=== PATIENT | male | born 1980 | race Caucasian/White ===

== ENCOUNTER → 2017-02-27 | Outpatient (CLI) | payer BC ==
[2017-02-27 14:00] LABS: ALBUMIN 4.2 GM/DL (3.2-5.2); ALBUMIN/GLOBULIN RATIO 1.05 (1.00-1.93); ALKALINE PHOSPHATASE 103 U/L (45-117); ALT/SGPT 32 U/L (12-78); ANION GAP 7 MEQ/L (8-16); AST/SGOT 14 U/L (15-37); BILIRUBIN,TOTAL 0.5 MG/DL (0.2-1.0); BLOOD UREA NITROGEN 15 MG/DL (7-18); CALCIUM LEVEL 9.5 MG/DL (8.5-10.1); CARBON DIOXIDE LEVEL 27 MEQ/L (21-32); CHLORIDE LEVEL 103 MEQ/L (98-107); GLOMERULAR FILTRATION RATE > 60.0 (>60); GLUCOSE, FASTING 91 MG/DL (70-105); POTASSIUM SERUM 4.7 MEQ/L (3.5-5.1); SODIUM LEVEL 137 MEQ/L (136-145); TOTAL PROTEIN 8.2 GM/DL (6.4-8.2)
[2017-02-27 14:50] LABS: BASO # 0.1 K/mm3 (0.0-0.2); BASO % 0.9 % (0.0-1.0); EOS # 0.2 K/mm3 (0.0-0.50); LYMPH # 1.7 K/mm3 (1.5-4.5); LYMPH % 24.6 % (24.0-44.0); MEAN CORPUSCULAR HEMOGLOBIN 31.1 pg (27.0-33.0); MEAN CORPUSCULAR HGB CONC 33.2 g/dl (32.0-36.5); MEAN CORPUSCULAR VOLUME 93.7 fl (80.0-96.0); MONO # 0.5 K/mm3 (0.0-0.8); MONO % 7.7 % (0.0-5.0); NEUTROPHILS # 4.1 K/mm3 (1.8-7.7); NEUTROPHILS % 62.5 % (36.0-66.0); RED CELL DISTRIBUTION WIDTH 12.4 % (11.5-14.5); WHITE BLOOD COUNT 6.6 K/mm3 (4.0-10.0)
== END ==
LOC: M WUC 09:38
PROVIDERS: ATTEND Physician Assistant Medical
DX: R10.84 Generalized abdominal pain (principal)

== ENCOUNTER → 2017-03-07 | Outpatient (CLI) | payer BC ==
[~2017-03-07] MED LIST: GASTROGRAFIN SOLUTION 30ML (Q9963) As Ordered ONE; ISOVUE-370 76% 100ML VIAL (Q9967) As Ordered ONE
--- NOTE | 2017-03-07 17:43 | REP ---
CT ABDOMEN AND PELVIS WITHOUT AND WITH CONTRAST: 03/07/2017. Clinical history: Left mid abdominal pain, hematuria. No prior study. Technique: Oral Gastrografin mixture 10 ml in 290 ml of flavored water for two doses per our bowel contrast protocol. Scanning through the abdomen followed by bolus of 100 ml of Isovue 370, scanning through the abdomen and pelvis with coronal and sagittal reconstructions provided. Findings: CT abdomen: Lung bases show some minor curvilinear fibroatelectatic change in the inferior lingula and medial segment right middle lobe. There is no pleural effusion or acute infiltrate. There is some minor curvilinear or linear atelectatic change lateral basal segment of the left lower lobe. Heart is not enlarged. There is no pericardial thickening or effusion. There is no definite hiatal hernia. The liver, spleen, gallbladder, pancreas, adrenal glands and stomach were grossly unremarkable. Small bowel loops and colon in the abdomen proper showed no acute finding. The aorta is without aneurysm. There is no periaortic or other retroperitoneal pathologic sized lymphadenopathy. The bone windows, lumbar and lower thoracic spine, the posterior elements and visualized ribs all grossly intact. There is a horseshoe kidney configuration. Neither kidney shows hydronephrosis. In the interpolar lower pole region of the right portion of the horseshoe kidney is a 7 mm stone. At the inferior pole is a 6.7 mm stone and neither of these are causing hydronephrosis on that right side, on the left side in an extrarenal pelvis measuring 8.9 mm. Ureters show a normal course to the bladder without stone. The bladder is partially empty with no stone, wall thickening or mass. Small bowel loops and colon have oral contrast, which extends to the hepatic flexure. No dilated loops, wall thickening or edema in the mesentery. No colitis, diverticulitis, stricture or mass in the colon, which has a mild to moderate amount of retained stool in the abdomen. Fused portion of the horseshoe kidney is unremarkable and neither side shows any definite hydronephrosis. CT pelvis: The bone windows show sacrum, SI joints, lumbosacral junction, pelvis, hips and symphysis pubis grossly unremarkable. Distal ureters show no dilatation or stone. There are multiple pelvic phleboliths bilaterally. Bladder only partially filled. Distal left colon, sigmoid and rectum without colitis or diverticulitis. Pelvic phleboliths are noted bilaterally. Small bowel loops in the deep pelvis were contrast filled and unremarkable. Ileocecal valve intact. No ventral or inguinal hernia nor inguinal adenopathy. There is no inflammatory change about the cecum to suggest appendicitis. Impression: 1. There is a horseshoe kidney with bilateral renal stones with a slightly prominent extrarenal pelvis for the left moiety of this horseshoe kidney and the stone measures 8.9 mm. There is a 7 mm stone and another 6.7 mm stone in the interpolar lower pole region of the right renal moiety of that horseshoe kidney, however, no definite hydronephrosis or hydroureter. Bladder without stone or mass. 2. Solid organs in the upper abdomen are otherwise unremarkable. Gallbladder and stomach were intact. Colon and small bowel loops without acute finding. No appendicitis. No ascites, adenopathy or free air. Signed by Ramakrishna Posey MD 03/08/2017 02:56 P
== END ==
LOC: M RAD 14:35
PROVIDERS: ATTEND Physician Assistant Medical
DX: R10.9 Unspecified abdominal pain (principal); R31.9 Hematuria, unspecified

== ENCOUNTER → 2017-03-20 | Outpatient (CLI) | payer BC ==
--- NOTE | 2017-03-21 04:41 | REP ---
Clinical: Chronic cough and shortness of breath with high risk factors. Graham: None. Findings: Lung boland demonstrate chronic-appearing fiber atelectatic changes predominate involving the right middle lobe, bilateral lower lobes and apices along with diffuse chronic interstitial changes and bronchiectasis. Small nodular focus along the lateral aspect of the right middle lobe measures approximately 7 mm and while this likely represents an area of chronic fibrosis/scarring, active pathology cannot be excluded. No consolidation, further nodule/mass. No pleural effusion/reaction or pneumothorax. Mild adenopathy cannot be excluded due to the lack of contrast enhancement. Thoracic aorta, heart and pericardium appear relatively normal. Surrounding musculoskeletal structures are intact. Limited upper abdomen demonstrates normal bilateral adrenal glands. Impression: 1. Moderate diffuse chronic appearing changes including fibro atelectatic changes, bronchiectasis, and scattered scarring with very vague early ground-glass opacities. 2. Small 7 mm focus along the lateral right middle lobe likely represents scarring although active pathology cannot be excluded and 3 - 6 month follow-up contrast enhanced chest CT may be warranted. Signed by Oscar Arvizu MD 03/21/2017 04:32 A
== END ==
LOC: M RAD 13:04
PROVIDERS: ATTEND Physician Assistant Medical
DX: R91.8 Other nonspecific abnormal finding of lung field (principal); F17.210 Nicotine dependence, cigarettes, uncomplicated; R06.02 Shortness of breath; R05 Cough

== ENCOUNTER → 2017-03-29 | Outpatient (CLI) | payer BC ==
--- NOTE | 2017-03-29 15:28 | REP ---
KUB ONE VIEW: HISTORY: Kidney stones. COMPARISON: CT 03/07/2017 A 9 mm calcification is present overlying the right kidney. An 11 mm calcification is present overlying the left kidney. These correspond to the renal calcifications seen in the recent CT examination. The intestinal gas pattern is nonspecific. IMPRESSION: Bilateral nephrolithiasis. Signed by Chuy Smith MD 03/29/2017 03:29 P
[2017-03-29 17:09] LABS: INR 0.93
== END ==
LOC: M SMT 14:49
PROVIDERS: ATTEND Urology
DX: N20.0 Calculus of kidney (principal)

== ENCOUNTER → 2017-05-02 | Day surgery (SDC) | payer BC ==
[~2017-05-02] VITALS: Ht 180.3 cm; Wt 93.0 kg
[~2017-05-02] MED LIST changes: -GASTROGRAFIN SOLUTION 30ML (Q9963) As Ordered ONE; +IBUP200C PO; -ISOVUE-370 76% 100ML VIAL (Q9967) As Ordered ONE; +KETAMINE HCL 200 MG/20 ML VIAL As Ordered ONE; +LIDOCAINE 2% INJ 100 MG/5 ML SDV (FOR ANES.) As Ordered ONE; +LR 1,000 ML IV ONE; +MIDAZOLAM INJ 2 MG/2 ML VIAL (J2250) As Ordered ONE; +ONDANSETRON 4MG/2ML VIAL (J2405) As Ordered ONE; +PROPOFOL 200 MG/20 ML VIAL As Ordered ONE; +ceFAZolin 2 GM/D5W 50 ML IV BAG (J0690) As Ordered ONE; +ePHEDrine SULFATE 25 MG/5 ML(5MG/ML) SYRINGE As Ordered ONE; +fentaNYL 100 MCG/2 ML INJECTION (J3010) As Ordered ONE
--- NOTE | 2017-05-02 07:05 | REP ---
Clinical: Renal stone. Technique: Single supine view of the abdomen and pelvis. Comparison: 03/29/2017. Findings: Stable bilateral intrarenal calculi are again identified measuring approximately 9 mm in the lower pole right kidney and 11 mm lower pole left kidney. Further evaluation of the urinary tract system is limited. Calcifications in the pelvis remains stable and compatible with phleboliths. Gas pattern is nonspecific. Skeletal structures intact. Impression: Stable bilateral renal calculi. Signed by Oscar Arvizu MD 05/02/2017 06:57 A
--- NOTE | 2017-05-02 09:26 | RO ---
DATE OF PROCEDURE: 05/02/2017 PREPROCEDURE DIAGNOSIS: Bilateral kidney stones. POSTPROCEDURE DIAGNOSIS: Bilateral kidney stones. PROCEDURE: Bilateral Extracorporeal shock wave lithotripsy (ESWL). SURGEON: Norbert Garcia MD LIVESTOCK LABORER: None ANESTHESIA: MAC. OPERATIVE INDICATIONS: This is a 36-year-old male who was found to have bilateral nonobstructing kidney stones in a horseshoe kidney. He was brought to the operating room today to undergo this procedure. DESCRIPTION OF PROCEDURE: The patient was brought to the operating room and MAC anesthesia was administered. Prophylactic antibiotics were infused. He was then placed in supine position in preparation for right sided extracorporeal shockwave lithotripsy. Fluoroscopy was utilized to monitor stone position and fragmentation throughout the procedure. The stone was identified. Shockwaves were then delivered to the stone ungated. There were no arrhythmias. The stone did appear to fragment well. After 2500 shocks, the extracorporeal shock wave lithotripsy on the right side was concluded. The patient was then repositioned for left sided extracorporeal shock wave lithotripsy. Once again, fluoroscopy was utilized to monitor stone position and fragmentation. Shockwaves were then delivered to the left sided kidney stone ungated. There were no arrhythmias. The stone did appear to fragment well. After 2500 shocks, the procedure was concluded. The patient was then awakened from anesthesia and transported to the recovery room in stable condition. ESTIMATED BLOOD LOSS: 0 mL. COMPLICATIONS: None. SPECIMENS: None. PLAN: The patient will followup in the clinic in a few weeks with imaging prior to assess for residual stone burden. [facility] HOSPITALClaudia
[2017-05-02 09:30] VITALS: BP 140/84
== END | disposition home or self-care (01) ==
LOC: M SDC 06:28
PROVIDERS: ATTEND Urology
DX: N20.0 Calculus of kidney (principal); R06.83 Snoring; F17.210 Nicotine dependence, cigarettes, uncomplicated
CPT/HCPCS: 50590; 74000; J0690; J2250; J2405; J3010

== ENCOUNTER → 2017-05-23 | Outpatient (CLI) | payer BC ==
[~2017-05-23] MED LIST changes: -IBUP200C PO; +IBUP200C10 PO; -KETAMINE HCL 200 MG/20 ML VIAL As Ordered ONE; -LIDOCAINE 2% INJ 100 MG/5 ML SDV (FOR ANES.) As Ordered ONE; -LR 1,000 ML IV ONE; -MIDAZOLAM INJ 2 MG/2 ML VIAL (J2250) As Ordered ONE; -ONDANSETRON 4MG/2ML VIAL (J2405) As Ordered ONE; -PROPOFOL 200 MG/20 ML VIAL As Ordered ONE; -ceFAZolin 2 GM/D5W 50 ML IV BAG (J0690) As Ordered ONE; -ePHEDrine SULFATE 25 MG/5 ML(5MG/ML) SYRINGE As Ordered ONE; -fentaNYL 100 MCG/2 ML INJECTION (J3010) As Ordered ONE
--- NOTE | 2017-05-23 08:49 | REP ---
Clinical: Nephrolithiasis. Technique: Single supine view of the abdomen and pelvis. Comparison: 05/02/2017. Findings: Comparison with recent CT dated 03/07/2017 demonstrates congenital horseshoe kidney with multiple calcifications. The previously identified calcification in the left renal moiety is not visualized on current examination. A single residual 6 mm calcification is identified in the lower pole of the right renal moiety. Further evaluation is limited due to technique. Bowel gas pattern is normal. Impression: Limited evaluation of the renal calcifications as described above. Correlation is recommended and CT without contrast may be warranted for further investigation. Signed by Oscar Arvizu MD 05/23/2017 08:42 A
== END ==
LOC: M SMT 08:27
PROVIDERS: ATTEND Nurse Practitioner Women's Health
DX: N20.0 Calculus of kidney (principal)

== ENCOUNTER → 2017-07-02 | Outpatient (REF) | payer BC | LOC: M SMT 17:35 | PROVIDERS: ATTEND Urology | DX: R30.0 Dysuria (principal) ==